=== PATIENT | male | born 1985 | race Hispanic/Latino ===

== ENCOUNTER 2017-05-27 02:54 | Emergency (ER) | payer MEDICAID ==
--- NOTE | 2017-05-27 04:49 | XRay Report ---
FINAL REPORT EXAM: XR CHEST 1V AP HISTORY: HERACLIO TECHNIQUE: AP portable view(s) of the chest obtained. PRIORS: None. FINDINGS: No mediastinal shift. Cardiac silhouette is not enlarged. No pneumothorax, effusion, or focal pulmonary opacity identified. No acute skeletal findings. IMPRESSION: No acute pulmonary finding identified.
[2017-05-27] MEDS ORDERED: DUONEB *Not for PRN Use IH ONE (07:42)
--- NOTE | 2017-05-27 07:47 | Emergency Department Report ---
ED General Adult HPI - General Chief complaint: Dyspnea/Respdistress Stated complaint: DIFFICULTY BREATHING Time Seen by Provider: 05/27/17 07:23 Source: family Mode of arrival: Ambulatory Limitations: Physical Limitation, Other - History of Present Illness Initial comments: Mother states that the patient has run out of his asthma medicine and is wheezing has flared up. He has had a nonproductive cough. He's had no apparent chest pain or discomfort. He's had no fever or chills. He received a neb treatment and his symptoms improved. He is nonverbal. -: days(s) Associated Symptoms: denies other symptoms, cough (per mom) - Related Data Previous Rx's Medication Instructions Recorded Last Taken Type Mupirocin [Bactroban 2% Oint] 1 applic TP BID #15 gm 02/05/14 Unknown Rx Ipratropium [Atrovent NEB] 0.5 mg IH Q6HRT PRN 30 Days neb 06/05/14 Unknown Rx ALBUTEROL NEB's [Proventil 0.083% 2.5 mg IH Q4H PRN #30 day 05/27/17 Unknown Rx NEBS] ALBUTEROL NEB's [Proventil 0.083% 2.5 mg IH Q4H PRN 30 Days neb 05/27/17 Unknown Rx NEBS] Albuterol Sulfate [Proventil Hfa] 6.7 gm IH Q4H PRN #1 hfa.aer.ad 05/27/17 Unknown Rx Triamcinolone 0.1% [Kenalog 0.1% 1 applic TP TID #2 tube 05/27/17 Unknown Rx CREAM] predniSONE [Deltasone] 20 mg PO QDAY #10 tablet 05/27/17 Unknown Rx predniSONE [Deltasone] 40 mg PO QDAY #10 tab 05/27/17 Unknown Rx Allergies Allergy/AdvReac Type Severity Reaction Status Date / Time egg Allergy Shortness Verified 02/05/14 03:44 of Breath house dust Allergy Shortness Verified 02/05/14 03:44 of Breath Milk Containing Products Allergy Shortness Verified 02/05/14 03:44 of Breath ED Review of Systems ROS: Stated complaint: DIFFICULTY BREATHING Other details as noted in HPI Comment: Unobtainable due to pts medical conditions ED Past Medical Hx - Past Medical History Previous Medical History?: Yes Hx Asthma: Yes Additional medical history: DEAF, AUTISM, EZEMA, BRONCHITIS - Surgical History Past Surgical History?: Yes Additional Surgical History: Scrotum surgery - Social History Smoking Status: Never Smoker - Medications Home Medications: Home Medications Medication Instructions Recorded Confirmed Last Taken Type Mupirocin [Bactroban 2% Oint] 1 applic TP BID #15 gm 02/05/14 06/05/14 Unknown Rx Ipratropium [Atrovent NEB] 0.5 mg IH Q6HRT PRN 30 Days neb 06/05/14 Unknown Rx ALBUTEROL NEB's [Proventil 0.083% 2.5 mg IH Q4H PRN #30 day 05/27/17 Unknown Rx NEBS] ALBUTEROL NEB's [Proventil 0.083% 2.5 mg IH Q4H PRN 30 Days neb 05/27/17 Unknown Rx NEBS] Albuterol Sulfate [Proventil Hfa] 6.7 gm IH Q4H PRN #1 hfa.aer.ad 05/27/17 Unknown Rx Triamcinolone 0.1% [Kenalog 0.1% 1 applic TP TID #2 tube 05/27/17 Unknown Rx CREAM] predniSONE [Deltasone] 20 mg PO QDAY #10 tablet 05/27/17 Unknown Rx predniSONE [Deltasone] 40 mg PO QDAY #10 tab 05/27/17 Unknown Rx ED Physical Exam - General Limitations: Physical Limitation, Other General appearance: alert, in no apparent distress - Head Head exam: Present: atraumatic, normocephalic - Eye Eye exam: Present: normal appearance, PERRL, EOMI. Absent: scleral icterus - ENT ENT exam: Present: mucous membranes moist - Neck Neck exam: Present: normal inspection - Respiratory Respiratory exam: Present: other (mild end expiratory wheeze). Absent: respiratory distress - Cardiovascular Cardiovascular Exam: Present: regular rate, normal rhythm. Absent: systolic murmur, diastolic murmur, rubs, gallop - GI/Abdominal GI/Abdominal exam: Present: soft, normal bowel sounds. Absent: distended, tenderness, guarding, rebound, rigid - Rectal Rectal exam: Present: deferred - Extremities Exam Extremities exam: Present: normal inspection - Back Exam Back exam: Present: normal inspection - Neurological Exam Neurological exam: Present: other (no acute focal deficit) - Psychiatric Psychiatric exam: Present: normal mood, flat affect - Skin Skin exam: Present: warm, dry, other (eczematous patch dorsum right ankle foot.) . Absent: rash ED Course Vital Signs 05/27/17 03:52 Pulse Rate 20 L Respiratory 20 Rate Blood Pressure 150/108 O2 Sat by Pulse 94 Oximetry - Reevaluation(s) Reevaluation #1: Given a DuoNeb and prednisone. Medicines will be renewed. 05/27/17 07:45 ED Medical Decision Making - Radiology Data Radiology results: report reviewed (chest x-ray no acute process) Critical care attestation.: If time is entered above; I have spent that time in minutes in the direct care of this critically ill patient, excluding procedure time. ED Disposition Clinical Impression: Autism Exacerbation of asthma Qualifiers: Asthma severity: moderate Asthma persistence: unspecified Qualified Code(s): J45.901 - Unspecified asthma with (acute) exacerbation Disposition: OP ADMIT IP TO THIS HOSP Is pt being admited?: No Does the pt Need Aspirin: No Condition: Stable Instructions: Asthma (ED) Additional Instructions: Follow-up with your primary care provider. If he doesn't have one one is listed. Return any acute change or problem. Prescriptions: ALBUTEROL NEB's [Proventil 0.083% NEBS] 2.5 mg IH Q4H PRN 30 Days neb PRN Reason: Shortness Of Breath ALBUTEROL NEB's [Proventil 0.083% NEBS] 2.5 mg IH Q4H PRN #30 day PRN Reason: Wheezing Albuterol Sulfate [Proventil Hfa] 6.7 gm IH Q4H PRN #1 hfa.aer.ad PRN Reason: Wheezing predniSONE [Deltasone] 40 mg PO QDAY #10 tab predniSONE [Deltasone] 20 mg PO QDAY #10 tablet Triamcinolone 0.1% [Kenalog 0.1% CREAM] 1 applic TP TID #2 tube Referrals: DAMIR MCFADDEN MD [Primary Care Provider] - 3-5 Days Time of Disposition: 07:46
[2017-05-27] MEDS ORDERED: DELTASONE PO ONE (07:52)
[2017-05-27 09:00] VITALS: BP 114/78
== END 2017-05-27 08:47 | disposition admitted as inpatient to this hospital (09) ==
LOC: ED 02:54
DX: J45.901 Unspecified asthma with (acute) exacerbation (principal); F84.0 Autistic disorder; Z91.012 Allergy to eggs; Z91.011 Allergy to milk products; Z91.048 Other nonmedicinal substance allergy status
CPT/HCPCS: 71045; 94640; 99283; J7512

== ENCOUNTER 2021-07-27 05:07 | Emergency (ER) | payer MEDICAID ==
[2021-07-27] MEDS ORDERED: prednisoLONE SOD PHOSPHATE 15 MG/5 ML ORAL LIQD PO ONE (08:22)
[2021-07-27] MEDS ORDERED: ALBUTEROL 2.5 MG/3 ML NEBU IH ONE (08:22)
--- NOTE | 2021-07-27 09:02 | XRay Report ---
XR chest 1V ap INDICATION / CLINICAL INFORMATION: sob COMPARISON: 05/27/2017 FINDINGS: SUPPORT DEVICES: None. HEART / MEDIASTINUM: No significant abnormality. LUNGS / PLEURA: Lungs are clear. Costophrenic sulci are sharp. No pneumothorax. ADDITIONAL FINDINGS: No significant additional findings. IMPRESSION: 1. No acute findings. Signer Name: Jani Armando MD Signed: 07/27/2021 8:58 AM Workstation Name: [id number]
--- NOTE | 2021-07-27 09:54 | Emergency Department Report ---
Minor Respiratory - HPI Chief Complaint: Upper Respiratory Infection Stated Complaint: DIFFICULTY BREATHING Time Seen by Provider: 07/27/21 07:59 Duration: 3 Days Pain Location: Chest Severity: mild Minor Respiratory: Yes Able to Tolerate Fluids, Yes Cough, No Rhinorrhea, No Sore Throat, No Ear Pain, No Sick Contacts, No Hemoptysis, No Chest Pain, No Shortness of Breath, No Fever Other History: Patient is a pleasant 36-year-old mentally challenged male who comes to the emergency room with cough and congestion. His mother brings him to the ER. He is deaf. Provider also signs. Able to communicate with patient without difficulty. ED Review of Systems ROS: Stated complaint: DIFFICULTY BREATHING Other details as noted in HPI Comment: All other systems reviewed and negative ED Past Medical Hx - Past Medical History Previous Medical History?: Yes Hx Asthma: Yes Additional medical history: DEAF, AUTISM, EZEMA, BRONCHITIS - Surgical History Past Surgical History?: Yes Additional Surgical History: Scrotum surgery - Social History Smoking Status: Never Smoker Substance Use Type: None - Medications Home Medications: Home Medications Medication Instructions Recorded Confirmed Last Taken Type Mupirocin [Bactroban 2% Oint] 1 applic TP BID #15 gm 02/05/14 06/05/14 Unknown Rx Ipratropium [Atrovent NEB] 0.5 mg IH Q6HRT PRN 30 Days neb 06/05/14 Unknown Rx ALBUTEROL NEB's [Proventil 0.083% 2.5 mg IH Q4H PRN #30 day 05/27/17 Unknown Rx NEBS] ALBUTEROL NEB's [Proventil 0.083% 2.5 mg IH Q4H PRN 30 Days neb 05/27/17 Unknown Rx NEBS] Albuterol Sulfate [Proventil Hfa] 6.7 gm IH Q4H PRN #1 hfa.aer.ad 05/27/17 Unknown Rx Ipratropium [Atrovent NEB] 0.5 mg IH Q6HRT #30 day 05/27/17 Unknown Rx Triamcinolone 0.1% [Kenalog 0.1% 1 applic TP TID #2 tube 05/27/17 Unknown Rx CREAM] Triamcinolone 0.1% [Kenalog 0.1% 1 applic TP TID #30 gm 05/27/17 Unknown Rx OINT] predniSONE [Deltasone] 20 mg PO QDAY #10 tablet 05/27/17 Unknown Rx predniSONE [Deltasone] 40 mg PO QDAY #10 tab 05/27/17 Unknown Rx ALBUTEROL NEB's [Proventil 0.083% 2.5 mg IH TID PRN #1 box 07/27/21 Unknown Rx NEBS] Albuterol Mdi (or & Nicu Only) 2 puff IH QID PRN #1 inhalation 07/27/21 Unknown Rx [ProAir HFA Inhaler] Cetirizine HCl [ZyrTEC] 10 mg PO DAILY #30 capsule 07/27/21 Unknown Rx Fluticasone [Flonase] 1 spray NS QDAY #1 bottle 07/27/21 Unknown Rx predniSONE [Deltasone] 20 mg PO DAILY #5 tablet 07/27/21 Unknown Rx Minor Respiratory Exam - Exam General: Vital signs noted. No distress. Alert and acting appropriately. HEENT: Yes Moist Mucous Membranes, No Pharyngeal Erythema, No Pharyngeal Exudates, No Rhinorrhea, No Conjuctival Injection, No Frontal Tenderness, No Maxillary Tenderness Ear: Neither TM Bulge, Neither TM Erythema, Neither EAC Pain, Neither EAC Discharge Neck: Yes Supple, No Adenopathy Lungs: Yes Good Air Exchange, Yes Wheezes, No Ronchi, No Stridor, No Cough, No Labored Respirations, No Retractions, No Use of Accessory Muscles, No Other Abnormal Lung Sounds Heart: Yes Regular, No Murmur Abdomen: Yes Normal Bowel Sounds, No Tenderness, No Peritoneal Signs Skin: No Rash, No Edema Neurologic: Alert and oriented, no deficits. Musculoskeletal: Unremarkable. ED Medical Decision Making - Radiology Data Radiology results: report reviewed, image reviewed No acute process - Medical Decision Making Vital Signs 07/27/21 10:25 Temperature 98.5 F Pulse Rate 56 L Respiratory 16 Rate Blood Pressure 128/86 [Left] O2 Sat by Pulse 100 Oximetry X-ray noted with no infiltrate or consolidation. Patient medicated with DuoNeb and prednisone. Patient being discharged home with discharge plan of care including diet, activity medications and follow-up. His mother verbalizes understanding of plan of care. On discharge patient not ill nontoxic and without fever. He has no tachycardia or hypotension. He is in his usual state of health. - Differential Diagnosis Rule out URI Critical care attestation.: If time is entered above; I have spent that time in minutes in the direct care of this critically ill patient, excluding procedure time. ED Disposition Clinical Impression: Bronchitis Disposition: 01 HOME / SELF CARE / HOMELESS Is pt being admited?: No Does the pt Need Aspirin: No Condition: Stable Instructions: Upper Respiratory Infection, Adult, [id number], Chronic Bronchitis (ED) Prescriptions: predniSONE [Deltasone] 20 mg PO DAILY #5 tablet Fluticasone [Flonase] 1 spray NS QDAY #1 bottle Albuterol Mdi (or & Nicu Only) [ProAir HFA Inhaler] 2 puff IH QID PRN #1 inhalation PRN Reason: Shortness Of Breath ALBUTEROL NEB's [Proventil 0.083% NEBS] 2.5 mg IH TID PRN #1 box PRN Reason: Wheezing Cetirizine HCl [ZyrTEC] 10 mg PO DAILY #30 capsule Referrals: [facility] [employer] [Primary Care Provider] - 3-5 Days Time of Disposition: 09:53
[2021-07-27 10:26] VITALS: BP 128/86
== END 2021-07-27 10:25 | disposition home or self-care (01) ==
LOC: ED 05:07
DX: J40 Bronchitis, not specified as acute or chronic (principal)
CPT/HCPCS: 71045; 94640; 99283; J7510